=== PATIENT | female | born 1970 | race Caucasian/White ===

== ENCOUNTER 2021-01-15 15:01 | Emergency (ER) | payer OTHER ==
[~2021-01-15 15:01] MED LIST: ASPIRIN EC81 MG PO; AZELASTINE137 MCG/0.; CLOPIDOGREL75 MG PO; CRESTOR10 MG PO; CYCLOBENZAPRINE5 MG PO; DAILY MULTIPLE1 EAC1 PO; DEXILANT60 MG PO; DILTIAZEM 24HR120 M1 PO; DILTIAZEM ER120 MG PO; DYAZIDE 37.5-21 EACH PO; ELAVIL 25 MG TA25 MG PO; FISH OIL 1,0001 EAC1 PO; IBU600 MG PO; LEXAPRO20 MG PO; NITROGLYCERIN0.4 MG SL; PULMICORT FLE180 MCG PO; VENTOLIN HFA 66.7 GM INH; VITAMIN B-121000 MC3 PO; XYZAL5 MG PO
[2021-01-15 16:53] LABS: HEMOGLOBIN 13.6 gm/dl (12.3-15.3); RED BLOOD COUNT 4.78 M/UL (4.00-5.10); WHITE BLOOD COUNT 12.4 K/UL (4.5-11.0)
[2021-01-15 17:24] LABS: BUN/CREATININE RATIO 11 (0-10)
[2021-01-15] MEDS ORDERED: BUTALBIT-ACETA1 EACH PO (19:40)
== END 2021-01-15 20:00 | disposition home or self-care (01) ==
LOC: ER1 15:01
PROVIDERS: Family Medicine
DX: R51.9 Headache, unspecified (principal); R53.1 Weakness; G70.00 Myasthenia gravis without (acute) exacerbation; I10 Essential (primary) hypertension; Z88.0 Allergy status to penicillin; Z88.1 Allergy status to other antibiotic agents; Z88.8 Allergy status to other drugs, medicaments and biological substances; Z79.02 Long term (current) use of antithrombotics/antiplatelets
CPT/HCPCS: 70450; 71045; 80053; 82550; 82553; 83605; 83735; 83874; 84439; 84443; 84484; 85025; 93005; 99285

== ENCOUNTER → 2021-02-22 | Outpatient (CLI) | payer OTHER ==
[~2021-02-22] MED LIST changes: +BUTALBIT-ACETA1 EACH PO
== END ==
LOC: SLEEP-COR 14:01
DX: G47.33 Obstructive sleep apnea (adult) (pediatric) (principal)
CPT/HCPCS: 95810